=== PATIENT | male | born 1950 | race Caucasian/White ===

== ENCOUNTER 2019-07-09 16:31 | Outpatient (CLI) | payer MEDICARE, SELFPAY ==
--- NOTE | 2019-07-09 | MR_ITS ---
WS: [id number] MRI RIGHT SHOULDER HISTORY: ROTATOR CUFF SYNDROME COMPARISON: RIGHT shoulder radiograph 05/20/2019 TECHNIQUE: Multiplanar sequences of the shoulder joint are submitted. Severe AC joint arthritis. Narrowing of the AC joint with a large osteophyte extending inferiorly tow ards the rotator cuff. Osteophyte extends inferiorly by 8 mm. There is contact and encroachment upon the myotendinous insertion of the supraspinatus. Small amount of subacromial and subdeltoid fluid. Th ere is an additional smaller 3 mm osteophyte along the undersurface of the distal acromion without co ntact on the rotator cuff. No os acromion. There is increased signal throughout the distal 4 cm of the supraspinatus tendon. There is no fluid l mario signal throughout the width of the tendon. I suspect there may be a very minimal insertion site t ear. Subscapularis and infraspinatus tendons are intact. Biceps tendon in normal position. Increased fluid signal in the superior labrum consistent with a tear. Small osteophytes involving the humeral h ead. MR/MR shoulder RT wo con* [id number] IMPRESSION: 1. Severe AC joint osteoarthritis. 2. AC joint osteophyte encroaches upon the myotendinous insertion of the supra spinatus with deformity and impingement. 3. Small amount of subacromial/subdeltoid bursal fluid may be related to the A C joint arthritis and encroachment. 4. Suspect minimal insertion site tear of the supraspinatus. 5. Abnormal signal superior labrum consistent with a tear. 6. Moderate tendinopathy supraspinatus tendon.
== END 2019-07-09 16:32 | disposition home or self-care (01) ==
PROVIDERS: Family Provider Electrodiagnostic Medicine; PCP Electrodiagnostic Medicine; Visit Provider Electrodiagnostic Medicine
DX: M75.101 Unspecified rotator cuff tear or rupture of right shoulder, not specified as traumatic (principal); M19.011 Primary osteoarthritis, right shoulder; S43.431A Superior glenoid labrum lesion of right shoulder, initial encounter; X58.XXXA Exposure to other specified factors, initial encounter
CPT/HCPCS: 73221

== ENCOUNTER 2020-01-02 08:11 | Outpatient (CLI) | payer MEDICARE, SELFPAY ==
--- NOTE | 2020-01-02 08:18 | XR_ITS ---
WS: [id number] LEFT SHOULDER: 3 VIEW(S) TECHNIQUE: Internal and external rotation with Y view. HISTORY: ROTATOR CUFF SYNDROME, LEFT COMPARISON: 07/21/2018 No fracture or dislocation or soft tissue abnormality. Moderate narrowing of the AC joint. Hypertrophic bone formation with subchondral cystic changes on roni th sides of the AC joint. Small osteophyte extends inferiorly towards the rotator cuff distal clavicl e by 4 mm. Mild narrowing of the glenohumeral joint. XR/XR shoulder LT min 2V* [id number] IMPRESSION: 1. Moderate AC joint arthritis, similar to 05/20/2019. 2. No fracture.
== END 2020-01-02 08:12 | disposition home or self-care (01) ==
PROVIDERS: Family Provider Electrodiagnostic Medicine; PCP Electrodiagnostic Medicine; Visit Provider Electrodiagnostic Medicine
DX: M75.102 Unspecified rotator cuff tear or rupture of left shoulder, not specified as traumatic (principal); M13.812 Other specified arthritis, left shoulder
CPT/HCPCS: 73030

== ENCOUNTER 2020-01-12 14:47 | Outpatient (CLI) | payer MEDICARE, SELFPAY ==
--- NOTE | 2020-01-12 14:57 | MR_ITS ---
WS: [id number] MRI LEFT SHOULDER HISTORY: ROTATOR CUFF SYNDROME, LEFT COMPARISON: 01/02/2020 TECHNIQUE: Multiplanar sequences of the shoulder joint are submitted. Moderate arthropathy of the AC joint. There is soft tissue hypertrophy and osteophyte formation at th e AC joint. Thickening of the capsule surrounding the AC joint. Soft tissue and osteophyte formation extends toward the supraspinatus muscle with encroachment. Moderate amount of subcutaneous acromial a nd subdeltoid bursal fluid distention. No os acromion. Distal acromion encroaches upon the superior h umeral head. Biceps tendon is in normal position. Biceps tendon is very thin at the bicipital groove and there may be a partial split tear. There is a complete tear with retraction of the supraspinatus tendon. There is a fluid gap in the dis gonzalo rotator cuff. The supraspinatus tendon is retracted to the superior humeral head. There is thinni ng of the tendon. There is a partial insertion site tear of the infraspinatus tendon. Subscapularis t endon is intact. Moderate to severe atrophy of the supraspinatus muscle. No muscle edema. Mild fraying along the surfaces of the superior labrum. No definite tear. Mild narrowing of the gleno humeral joint with small osteophytes surrounding the humeral head. MR/MR shoulder LT wo con* [id number] IMPRESSION: 1. Complete tear supraspinatus tendon with retraction to the superior humeral head. Tendon is thinned over the superior humeral head. 2. Moderate atrophy of the supraspinatus muscle. 3. Small insertion site tear infraspinatus tendon. 4. Moderate osteoarthritis AC joint with osteophyte encroachment upon the supr aspinatus muscle. 5. Biceps tendon at the bicipital groove is very thin and suspicious for split tear.
== END 2020-01-12 14:48 | disposition home or self-care (01) ==
LOC: RADWPI 14:52
PROVIDERS: Family Provider Electrodiagnostic Medicine; PCP Electrodiagnostic Medicine; Visit Provider Electrodiagnostic Medicine
DX: M75.102 Unspecified rotator cuff tear or rupture of left shoulder, not specified as traumatic (principal); S46.912A Strain of unspecified muscle, fascia and tendon at shoulder and upper arm level, left arm, initial encounter; M19.012 Primary osteoarthritis, left shoulder; X58.XXXA Exposure to other specified factors, initial encounter
CPT/HCPCS: 73221

== ENCOUNTER → 2020-03-01 09:00 | Outpatient (BNVA) | payer MEDICARE, SELFPAY | PROVIDERS: Family Provider Electrodiagnostic Medicine; PCP Electrodiagnostic Medicine; Visit Provider Internal Medicine | DX: Z11.59 Encounter for screening for other viral diseases (principal) | CPT/HCPCS: 87635 ==

== ENCOUNTER 2020-03-04 07:49 | Outpatient (CLI) | payer MEDICARE, SELFPAY ==
--- NOTE | 2020-03-04 07:56 | ECG_ITS ---
[facility] Test Date: 2020-03-04 Pat Name: Marquis Love Department: Room: Gender: Male Picture Copyist: : 1950 Requested By: Gilberto Maurer Order Number: [id number] Ryan MD: Gilberto Maurer M.D. Interpretive Statements NAME OF STUDY: LEXISCAN SESTAMIBI STRESS TEST INDICATION: [Chest Pain] Procedure: At the baseline the blood pressure was 136/89 mmHg, oxygen saturation 96% with a heart rate of 54 bpm. The electrocardiogram showed sinus bradycardia, normal axis with normal ST and T's. The Lexiscan was infused over the period Of 20 seconds. A total of 0.4 mg of Lexiscan was infused. The stress phase was continued for a total of 5 minutes. Heart rate at the end of stress phase was 76 bpm, oxygen saturation 96% with a blood pressure of 143/78 mmHg. The EKG at the peak infusion revealed sinus rhythm with no significant ST-T wave changes. Sestamibi was injected 20 seconds after Lexiscan infusion. Blood pressure at the end of recovery phase was 141/80mmHg, oxygen saturation 95% with a heart rate of 72 bpm. Conclusion: 1. Normal EKG response to Lexiscan infusion. 2. No Lexiscan induced chest pain or cardiac arrhythmia. 3. Normal blood pressure and heart rate response. 4. Sestamibi/sestamibi perfusion scan pending; see separate report. Electronically Signed On 03-16-2020 14:36:59 CDT by Gilberto Maurer M.D. [email or web address].[id number]
--- NOTE | 2020-03-04 07:57 | NMCV_ITS ---
NM kai perf SPECT r/s* [id number] Marquis Love Age: 69 Gender: M : 1950 Exam Date: 03/04/2020 09:10 Ordering Phys: Gilberto Maurer M.D ([email or web address]) Technologist: NIRAV Strickland Exam Location: [facility] Indications: Chest pain STRESS TEST [facility] IMAGE PROTOCOL Rest/Stress 1 Lexiscan Day Radiopharmaceutical Dose (mCi) Administration Site Administered by Rest: Tc-99m 10.8 IV NIRAV Amaya Sestamibi Stress:Tc-99m 32.6 IV NIRAV Strickland Sestamikallie Rest: 04-Mar-2020 60 Discovery 630 Stress: 04-Mar-2020 45 Discovery 630 0.4mg Lexiscan. Images obtained in supine and prone position. SPECT RESULTS Technical Quality: Good Raw Data Analysis: Normal Image Corrections: No attenuation or motion correction applied Summed Stress Score: 33 Summed Rest Score: 29 Summed Difference Score: 4 PERFUSION FINDINGS Large in size and severe in intensity fixed perfusion defect is noted in the apical wall. Moderate sized, partially reversible perfusion defects are noted in the anterior and apical inferior liu. FUNCTIONAL RESULTS (calculated via Gated SPECT) Stress Image LV EF (%): 49 Stress EDV (mL):132 TID: 1.12 Stress ESV (mL):67 FUNCTIONAL FINDINGS: LV systolic funtion is mildly reduced with EF of 49% at stress and apical hypokinesis. IMPRESSIONS 1) Myocardial perfusion fixed defect in the apical wall likely indicating prior infarct. There is a partially reversible perfusion defect in the anterior and apical inferior wall. Clinical correlation is recommended 2) Mildly reduced LV systolic function with EF of 49% Gilberto Maurer MD (Electronically Signed) Final Date: 06 March 2020 18:02 S
[2020-03-04 08:07] VITALS: BMI 36.0
[2020-03-04] MEDS: regadenoson 0.4 Mg/5 ml Syringe IVP (10:25)
[2020-03-04 10:45] VITALS: BP 141/80; PULSE 71
== END 2020-03-04 07:50 | disposition home or self-care (01) ==
LOC: CDL 07:51
PROVIDERS: PCP Electrodiagnostic Medicine; Visit Provider Internal Medicine
DX: R07.9 Chest pain, unspecified (principal)
CPT/HCPCS: 78452; 93017; A9500; J2785

== ENCOUNTER 2020-03-12 11:24 | Outpatient (CLI) | payer MEDICARE, SELFPAY ==
[2020-03-12 11:58] LABS: Basophils # 0.1 10^3/uL (0.0-0.1); Basophils % 0.7 %; Eosinophils # 0.2 10^3/uL (0.0-0.8); Eosinophils % 2.9 %; Hemoglobin 15.8 g/dL (11.7-16.6); Lymphocytes # 1.8 10^3/uL (0.8-4.8); Lymphocytes % 26.4 %; Mean Corpuscular HGB Conc 32.2 g/dL (30.0-36.0); Mean Corpuscular Hemoglobin 29.5 pg (28.0-34.0); Mean Corpuscular Volume 91.6 fL (80-94); Monocytes # 0.7 10^3/uL (0.2-0.9); Monocytes % 9.7 %; Neutrophils # 4.19 10^3/uL (1.8-7.7); Nucleated Red Blood Cells % 0 %; Platelet Count 247 10^3/cmm (130-400); Red Blood Count 5.35 10^6/uL (4.1-5.3); Red Cell Distribution Width 13.4 % (12.1-15.1)
[2020-03-12 12:17] LABS: Anion Gap 15.2 (5-19); Blood Urea Nitrogen 25 mg/dL (8-23); Calcium 9.1 mg/dL (8.5-10.5); Carbon Dioxide 24 mmol/L (22-29); Chloride 101 mmol/L (98-107); Glomerular Filtration Rate 95.8 mL/min (90-130); Glucose 120 mg/dL (65-115); Osmolality Calculated 288 mOsm/kg (285-295); Potassium 4.2 mmol/L (3.5-5.1); Sodium 136 mmol/L (136-145)
== END 2020-03-12 11:25 | disposition home or self-care (01) ==
LOC: LAB 11:29
PROVIDERS: PCP Electrodiagnostic Medicine; Visit Provider Internal Medicine
DX: R07.9 Chest pain, unspecified (principal); Z20.828 Contact with and (suspected) exposure to other viral communicable diseases
CPT/HCPCS: 80048; 85025; 87635

== ENCOUNTER 2020-03-17 09:43 | Observation (INO) | payer MEDICARE, SELFPAY ==
[2020-03-16 10:19] VITALS: BMI 35.9
[2020-03-17] VITALS (34 sets, daily range): BP systolic 100–159; BP diastolic 68–97; PULSE 52–71; RESP 8–52; TEMP 36.6–36.8; O2SAT 94–98
--- NOTE | 2020-03-17 07:00 | XACV_ITS ---
Ht: 170 cm Wt: 103 kg BSA: 2.25 m2 Gender: Male : 1950 Any Known Allergies: No known allergies Exam Priority: Routine Procedure(s): Procedure Description: Diagnostic procedure Procedure Description: PCI procedure Procedure Description: Left Heart Catheterization Procedure Description: Drug Eluting Coronary Stent Procedure Description: PTCA Diagnostic Cath Status: Elective Diagnostic Findings * There is a mid LAD stent that is 100% occluded. This is chronic occlusion. A large septal artery with significant 70 to 80% proximal stenosis is noted arising just prior to occluded LAD stent. The septal artery provides left to left collaterals to apical LAD. mLAD: Severe 100% stenosis, TRINIDAD: 0 flow. A large diagonal artery is seen which has patent stents.. * Mid left circumflex artery at the origin of * obtuse marginal artery * has about 90% stenosis. mCIRC: Severe 90% stenosis, TRINIDAD: 0 flow. Large OM branch has a patent stent.. * LM has 0% stenosis. * Mid Right Coronary Artery: Severe 90% stenosis, TRINIDAD: 0 flow. * Coronary angiography shows right dominance. PCI Status: Elective PCI Indication: Other Interventional Findings * We engaged RCA using a JR4 guide catheter. A 0.014 run-through guidewire was used to cross the lesion. We predilated with a mid RCA stenosis using 2.5 x 12 mm semi-compliant balloon. This was followed by placement of a 3.0 x 15 mm resolute Rafael drug-eluting stent. At this time final angiogram was performed that showed TRINIDAD-3 flow, excellent stent expansion and no residual stenosis. Guidewire and guide catheter were removed. We then turned our attention to mid left circumflex artery stenosis. We used XB 3.5 guide catheter to engage the left main artery. A 0.014 run-through guidewire was used to cross the mid left circumflex stenosis. We placed a 2.75 x 15 mm drug-eluting stent and mid left circumflex artery. At this time final angiogram was performed that showed TRINIDAD-3 flow, no residual stenosis and excellent stent expansion. Guidewire and guide catheter were removed.. * mCIRC: 90% stenosis treated with MDT R RAFAEL 2.75X15 GIANLUCA. 0% residual stenosis, TRINIDAD: 3 flow. * Mid Right Coronary Artery: 90% stenosis treated with AB TREK 2.50X12 RX BALLOON and MDT R RAFAEL 3.0X15 GIANLUCA. 0% residual stenosis, TRINIDAD: 3 flow. Conclusions 1. Mid LAD stent is chronically occluded. This is unchanged from prior angiogram from 2 years ago. 2. There is severe coronary artery disease with three vessel disease. 3. mCIRC was treated with Drug Eluting Stent. 4. Mid Right Coronary Artery was treated with Balloon and Drug Eluting Stent. Recommendations * Admit to CSU. * Aspirin and Plavix for at least 1 year. * High intensity statin therapy. * Beta-marv and lisinopril. * Follow-up with cardiology clinic as outpatient. Interventional RX Recommendation: PCI w/o planned CABG Diagnostic RX Recommendation: PCI w/o planned CABG Anticoagulation: Heparin Pressures Phase:Rest AO : 100 / 62 ( 79 ) @ 2:55:00 AM Clinical Evaluation EBL: 5mL-10mL Procedural Details Procedure Consent Obtained. Pre-Procedure Time Out. Identified patient by full name and date of as verbalized by the patient/guarantor. Does the consent match the physician's order: Yes. Accurate & Complete Informed Consent: Yes. Inpatient/Outpatient History & Physical on Chart: Yes. If H&P is completed, is and addenduem needed: N/A; If yes, is the addendum complete: N/A. Visualize and Verify Site with Patient/Guarantor: N/A. Relevant Radiology Images available: N/A. Pre-op teaching completed and patient verbalized understanding. The risks, benefits, and alternatives of sedation and/or procedure were discussed by physician. The patient agrees to continue. Procedure started. Correct patient, site and procedure confirmed by cath team. PERRLA. Strong, equal hand facility sales and admin bilaterally. Lungs clear x 5 lobes. IV Site on Arrival: 20 gauge in the right anticubital. Pre Procedural Pulses: bilateral dorsalis pedis was 2+. Pre Procedural Pulses: bilateral posterior tibial was 1+. Pre Procedural Pulses: bilateral radial was 2+. Oxygen started at 2liters/min via nasal canula. bilateral groins was prepped with chloroprep then draped in the usual sterile fashion. right radial was prepped with chloroprep then draped in the usual sterile fashion. Physician notified. Baseline sample Acquired. HR: 54 BPM. Physician arrived. Physician scrubbed in. Immediate Pre-Procedure Time Out. Correct Patient: Yes; Correct Procedure: Yes; Correct Site: Yes; Correct Patient Position: Yes; Correct Supplies: Yes; Dried Flammable Prep: Yes; Blood Products Available: N/A;. Lidocaine 1% infiltrated to the right radial. Arterial access obtained. A 5 cymraes TIG catheter in over wire. Multiple views taken of left coronary artery. Catheter redirected to the RCA. Multiple views taken of right coronary artery. Catheter out. 6 cymraes JR 4 guide catheter was inserted over the wire. Runthrough guidewire was advanced through the guide catheter to lesion in the mid RCA. Inflation number : 1 A AB TREK 2.50X12 RX BALLOON was prepped and advanced across the Mid RCA , then inflated to 10 BRITTANY for 0:19 seconds. Balloon out. Inflation Number : 2 A DONY Murray RAFAEL 3.0X15 GIANLUCA -Lot Number# [id number] exp: 12-16-2021 was prepped and advanced across the Mid RCA. The stent was deployed at 14 BRITTANY for 0:21 seconds. checking results. guide catheter out. wire out. 6 cymraes XB 3.5 guide catheter was inserted over the wire. ACT drawn. Results 220 seconds. Therapeutic limits - pre-heparin administration 90-150 seconds and monitoring heparin during a vascular procedure >250 seconds. Guide catheter out. 6 cymraes XB 3 guide catheter was inserted over the wire. Runthrough guidewire was advanced through the guide catheter to lesion in the mid Circ. Inflation Number : 1 A DONY Murray RAFAEL 2.75X15 GIANLUCA -Lot Number# [id number] exp:12-15-2021 was prepped and advanced across the Mid CX. The stent was deployed at 14 BRITTANY for 0:19 seconds. Stent balloon out over wire. checking results. Wire out. Guide catheter out. TR band placed. Hemostasis obtained. Post Procedure: Pulses reassessed and unchanged. PERRLA. Strong, equal hand facility sales and admin bilaterally. No VTE prophylaxis required. Medication's Wasted: Lidocaine 1% = 18 mL. Medication's Wasted: Nitro = 49.8 mg. Medication's Wasted: Heparin = 1000 units. Total IV fluids: 100 mL. Contrast type used: Omnipaque 300 mgI/mL, 500 mL bottle. Contrast Material : Omnipaque 368 ml. Complications: none. Estimated blood loss: 5mL-10mL. A TR Band was successful obtaining hemostatsis at the Right Radial artery insertion site. [facility] Clinical Fraility Score: 3: Managing Well. Painter Interior Finish Indications: Worsening Angina and positive stress test. Chest Pain Symptom Assessment: Typical Angina Symptoms. Cardiovascular Instability: No,. PCI Indication: severe 2 vessel CAD (without ischemic symptoms). Post-op diagnosis: severe 2 Vessel CAD. Procedure completed. Patient transferred by wheelchair to 1st floor. Vital chart was stopped. Access Site Site: Right Radial artery Sheath Size: 6 Fr Hemostasis Method: TR Band Hemostasis Success: Successful Procedure Medications Start: 7:29 AM Stop: 7:29 AM Medication: Benadryl Amount: 25 mg Route: I.V. Start: 7:33 AM Stop: 7:33 AM Medication: Versed Amount: 1 mg Route: I.V. Start: 7:33 AM Stop: 7:33 AM Medication: Fentanyl Amount: 50 mcg Route: I.V. Start: 7:46 AM Stop: 7:46 AM Medication: Nitrogylcerin Amount: 200 mcg Route: I.A. Start: 7:46 AM Stop: 7:46 AM Medication: Heparin Amount: 5000 units Route: I.V. Start: 8:01 AM Stop: 8:01 AM Medication: Versed Amount: 1 mg Route: I.V. Start: 8:01 AM Stop: 8:01 AM Medication: Fentanyl Amount: 50 mcg Route: I.V. Start: 8:02 AM Stop: 8:02 AM Medication: Heparin Amount: 5000 units Route: I.V. Start: 8:21 AM Stop: 8:21 AM Medication: Heparin Amount: 3000 units Route: I.V. Start: 8:38 AM Stop: 8:38 AM Medication: Heparin Amount: 2000 units Route: I.V. I, the attending physician, have reviewed and verified all procedure medications. Yes, all medications given per verbal order History/Risk Factors Hypertension: Yes Dyslipidemia: Yes Peripheral Arterial Disease (PAD): No Myocardial Infarction (AR): No Obesity: Yes Renal Disease: No Tobacco Use: Never Prior Interventions PCI: Yes CABG: No Valve Surgery: No Date of PCI: 01/30/2018 Report Signatures Finalized by Gilberto Maurer MD on 03/21/2020 06:28 PM
--- NOTE | 2020-03-17 07:33 | W.PM.OPSUD ---
Surgery/Procedure H&P Update DATE OF PROCEDURE: March 17, 2020 DATE H&P PERFORMED: 02/18/20 H&P UPDATE INFORMATION: I have reviewed H&P completed within last 30 days, I have examined patient prior to procedure and No changes to prior documentation PREOP DIAGNOSIS: Abnormal stress test/worsening angina PRIMARY INDICATION FOR PROCEDURE: Abnormal stress test/worsening angina PLANNED PROCEDURE: Operation Date: 03/17/20 07:00 Proposed Procedures p Left Cardiac Catheterization(Left) - Gilberto Maurer M.D Possible PCI PATIENT REASSESSED PRIOR TO SEDATION, WITH NO CHANGE NOTED: Yes PHYSICAL EXAM: alert, oriented x 3 and clear to auscultation bilaterally AIRWAY EVAL/ANESTHESIA PLAN: normal airway, ASA III, Risks, benefits & alternatives of sedation and/or procedure discussed and Patient agrees to continue as planned
[2020-03-17] MEDS: clopidogrel 300 mg Tablet PO (09:56)
[2020-03-17] MEDS: sodium chloride 0.9% 1,000 ML 50 ML IV (10:23)
--- NOTE | 2020-03-17 10:35 | PC.NURSE ---
Patient's 0900 meds ordered not given as patient stated he took all his morning meds at home this morning (except metformin)
[2020-03-17 11:26] LABS: Glucose Point of Care 156 mg/dL (70-110)
--- NOTE | 2020-03-17 12:00 | PC.NURSE ---
At 1115 removed 3 ml of air from TR band. No bleeding noted. At 1145 removed additional 4 ml of air. Oozing noted at noon. Returned 4 ml of air to TR bad and cleaned around band.
[2020-03-17 16:52] LABS: Glucose Point of Care 116 mg/dL (70-110)
--- NOTE | 2020-03-17 19:37 | PC.NURSE ---
Rounding:Patient is resting in bed watching TV. Patient denies any pain or needs at this time. Patient remains alert and oriented at this time.
[2020-03-17] MEDS: atorvastatin 40 mg Tablet PO (20:34)
--- NOTE | 2020-03-18 00:04 | PC.NURSE ---
Called Dr. Serna due to patient request for a sleeping pill. Orders received for a Restoril 15mg PRN as needed for sleep. Read back verbal order.
[2020-03-18] MEDS: temazepam 15 mg Capsule PO (00:17)
[2020-03-18 04:04] VITALS: BP 143/89; PULSE 71; RESP 14; TEMP 36.7; O2SAT 95
--- NOTE | 2020-03-18 06:05 | PC.NURSE ---
End of shift: Patient has had a uneventful shift. Patient remains alert and oriented. Patient has rested off and on this shift. Patient has had no complaints of pain.
--- NOTE | 2020-03-18 07:43 | P.SS_ITS ---
Short Stay Summary Providers Date of Admit/Discharge: 03/18/20 Attending Provider: Gilberto Maurer M.D Primary Care Provider: Vijay Nunes DO Chief Complaint: left heart cath HPI History of Present Illness Marquis Love is a 70 year old male with past medical history of coronary artery disease, ST elevation CT status post proximal LAD PCI and PCI of second diagonal and first obtuse marginal branch was having chest pains. He underwent nuclear stress test that was abnormal. He came to hospital for outpatient coronary angiography with possible percutaneous coronary intervention. Review of Systems Narrative: CONSTITUTIONAL: No fever chills weight loss or gain or night sweats. [] HEENT: Normocephalic, atraumatic.[] RESPIRATORY: No cough, sputum, hemoptysis or wheezing.[] CARDIOVASCULAR: No shortness of breath, chest pain, PND, orthopnea, lower extremity edema, presyncope or syncope. [] GI: no nausea vomiting diarrhea. [] MEMORIAL ADVISER: No numbness, tingling, weakness or loss of function in any part of the body. [] MUSCULOSKELETAL: No knee or joint pain or rashes. [] Home Meds/Allergies Home Medications and Allergies Home Medications Medication Instructions Recorded Confirmed Type canagliflozin 100 mg tablet 50 mg PO QAM tab 06/18/19 03/17/20 History escitalopram oxalate 20 mg tablet 10 mg PO DAILY tab 06/18/19 03/17/20 History fenofibrate nanocrystallized 145 145 mg PO DAILY tab 06/18/19 03/17/20 History mg tablet lisinopril 20 1 tab PO DAILY tab 06/18/19 03/17/20 History mg-hydrochlorothiazide 12.5 mg tablet metformin 500 mg tablet 500 mg PO BID 06/18/19 03/17/20 History metoprolol tartrate 50 mg tablet 25 mg PO BID tab 06/18/19 03/17/20 History nitroglycerin 0.4 mg sublingual 0.4 mg SUBLINGUAL Q5M PRN 06/18/19 03/16/20 History tablet Allergies Allergy/AdvReac Type Severity Reaction Status Date / Time No Known Allergies Allergy Verified 02/18/20 14:54 PFSH Acute PFSH: Medical History Diabetes Family History Father CAD (coronary artery disease) Myocardial infarction Brain aneurysm Mother CAD (coronary artery disease) Social History Smoking and tobacco status: never smoked Alcohol intake: never Vitals/I&O/Wt Last Vital Signs Temp 98.1 F 03/18/20 04:04 Pulse 71 03/18/20 04:04 Resp 14 03/18/20 04:04 BP 143/89 03/18/20 04:04 Pulse Ox 95 03/18/20 04:04 03/17/20 03/18/20 03/18/20 22:59 06:59 14:59 Intake Total 360 / 840 250 / 1090 Output Total 1150 / 1700 1200 / 2900 500 / 500 Balance -790 / -860 -950 / -1810 -500 / -500 Weight last 48 hrs Weight 229 lb Physical Exam Narrative: EXAM NARRATIVE: GENERAL: Patient is alert, awake and oriented x3. [] NECK: No jugular vein distension. [] HEENT: No cyanosis. No icterus. No pallor. [] HEART: Regular S1 and S2. No murmur, rub or gallop. [] LUNGS: Clear to auscultate bilaterally. [] ABDOMEN: Soft, nontender and nondistended. Positive bowel sounds. No guarding, rebound or tenderness. [] CENTRAL NERVOUS SYSTEM: Grossly nonfocal. [] EXTREMITIES: Lower extremities with no edema bilaterally. Pulses palpable in the lower extremities, both dorsalis pedis and posterior tibial. [] Hospital Course Admission Diagnoses: Worsening angina/abnormal stress test Hospital Course: Marquis Love is a 70 year old male with past medical history of coronary artery disease, ST elevation CT status post proximal LAD PCI and PCI of second diagonal and first obtuse marginal branch was having chest pains. He underwent nuclear stress test that was abnormal. He underwent coronary angiography yesterday that showed severe mid RCA and mid left circumflex stenosis. He underwent PCI with drug-eluting stent x2. Patient stayed in the hospital for 1 night. He was stable. He was discharged home on aspirin, Plavix, lisinopril and beta-marv. His simvastatin was switched to atorvastatin 80 mg daily. SSS Data Data Completed and Pending: Pending at discharge Category Date Time Status HEAVY EQUIPMENT SERVICE MANAGER request for service Routin e Exams 03/17/20 07:00 Taken Discharge Plan Discharge Patient Disposition: Home Condition: Stable Prescriptions: New Adult Aspirin Regimen 81 mg tablet,delayed release (DR/EC) 81 mg PO DAILY Qty: 90 RF: 3 atorvastatin 80 mg tablet 80 mg PO DAILY Qty: 90 RF: 3 Continued escitalopram oxalate 20 mg tablet 10 mg PO DAILY RF: 0 Invokana 100 mg tablet 50 mg PO QAM RF: 0 fenofibrate nanocrystallized 145 mg tablet 145 mg PO DAILY RF: 0 metoprolol tartrate 50 mg tablet 25 mg PO BID RF: 0 lisinopril-hydrochlorothiazide 20-12.5 mg tablet 1 tab PO DAILY RF: 0 nitroglycerin [Nitrostat] 0.4 mg tablet, sublingual 0.4 mg SUBLINGUAL Q5M PRN (Reason: Chest Pain) RF: 0 clopidogrel 75 mg tablet 75 mg PO DAILY Qty: 90 RF: 0 Discontinued aspirin 325 mg tablet 325 mg PO DAILY RF: 0 simvastatin 80 mg tablet 80 mg PO .HS RF: 0 No Action metformin 500 mg tablet 500 mg PO BID RF: 0 Discharge Orders: Discharge Order (Routine); Ordered 03/18/20 Ordered By: Gilberto Maurer Referrals: Gilberto Maurer M.D [Physician] - 1 month (You have a cardiology followup with Dr. Maurer at [facility] on May 05 at 1:00pm) Santa Pugh FNP [Nurse Practitioner] - 1 week (You have a post procedure followup with ANASTACIA Vann at [facility] on March 25 at 10:45am) Discharge Diet: Cardiac Discharge Activity: Increase activity as tolerated Patient Instructions: Aspirin (By mouth), Atorvastatin (By mouth), Clopidogrel (By mouth), Hypertension, Coronary Artery Disease (DC), Chest Pain (DC), Left Heart Catheterization (DC), Coronary Angioplasty (DC), Chest Pain Stoplight, Post Angiogram Home Care Instructions Activity Restrictions/Additional Instructions: Please do not lift any weight more than 5 pounds for the next 5 days Discharge Date/Time: 03/18/20 10:15 Attestations Medical Necessity Statement*: Care not expected to cross 2 midnights. Time Spent in Patient Care*: greater than 30 min Quality Metrics Clinical Quality Measures: During this hospital stay, did patient experience: None Coding Level of Care Code Acute Tire Spotter for [place]
[2020-03-18] MEDS: hydroCHLOROthiazide 25 mg Tablet 12.5 MG PO (08:04)
[2020-03-18] MEDS: lisinopril 20 mg Tablet PO (08:04)
[2020-03-18] MEDS: fenofibrate 145 mg Tablet PO (08:04)
[2020-03-18] MEDS: clopidogrel 75 mg Tablet PO (08:05)
[2020-03-18] MEDS: escitalopram 10 mg Tablet PO (08:05)
[2020-03-18] MEDS: metoprolol tartrate 25 mg Tablet PO (08:05)
[2020-03-18 08:53] VITALS: BP 132/87; PULSE 66; RESP 15; TEMP 36.7; O2SAT 94
[2020-03-18 10:14] VITALS: BP 132/87; PULSE 66; RESP 15; TEMP 36.7; O2SAT 94
== END 2020-03-18 10:15 | disposition home or self-care (01) ==
LOC: CSU 09:44
PROVIDERS: Admitting Provider Internal Medicine; PCP Electrodiagnostic Medicine; Visit Provider Internal Medicine
DX: I65.23 Occlusion and stenosis of bilateral carotid arteries (principal); I25.10 Atherosclerotic heart disease of native coronary artery without angina pectoris; I25.2 Old myocardial infarction; E11.9 Type 2 diabetes mellitus without complications; Z79.84 Long term (current) use of oral hypoglycemic drugs; Z82.49 Family history of ischemic heart disease and other diseases of the circulatory system
CPT/HCPCS: 12345; 36415; 36416; 82962; 85347; 85610; 93454; C1725; C1769; C1874; C1887; C1894; C9600; C9601; G0378; J1200; J1644; J2250; J3010; J3490; J7030; Q9967

== ENCOUNTER → 2020-03-25 11:41 | Outpatient (BNVA) | payer MEDICARE, SELFPAY | PROVIDERS: PCP Electrodiagnostic Medicine; Visit Provider Nurse Practitioner Family | DX: I25.119 Atherosclerotic heart disease of native coronary artery with unspecified angina pectoris (principal) | CPT/HCPCS: 80048 ==

== ENCOUNTER 2020-05-31 10:13 | Outpatient (CLI) | payer MEDICARE, SELFPAY ==
--- NOTE | 2020-05-31 10:27 | FL_ITS ---
WS: [id number] MODIFIED BARIUM SWALLOW TECHNIQUE: Modified barium swallow with speech therapy using multiple consistencies. FLUOROSCOPY TIME: 3.3 minutes. CLINICAL INFORMATION: Other dysphagia COMPARISON: None. FINDINGS: Modified barium swallow using multiple consistencies. Penetration is significantly progressed. No fra nk aspiration. Mild esophageal dysmotility in the mid and distal esophagus. Slightly delayed transit of the barium tablet in the mid to distal esophagus which shortly traversing the GE junction with add itional liquid. FL/FL barium swallow modifd [id number] IMPRESSION: 1. Penetration visualized with thin liquids. No malia aspiration. 2. Mild esophageal dysmotility in the mid to distal esophagus. This can be fur ther evaluated with esophagram.
== END 2020-05-31 10:14 | disposition home or self-care (01) ==
PROVIDERS: PCP Electrodiagnostic Medicine; Visit Provider Electrodiagnostic Medicine
DX: R13.10 Dysphagia, unspecified (principal); I10 Essential (primary) hypertension; E78.5 Hyperlipidemia, unspecified; R07.9 Chest pain, unspecified; I25.10 Atherosclerotic heart disease of native coronary artery without angina pectoris
CPT/HCPCS: 74230; 92611

== ENCOUNTER 2021-01-24 08:41 | Outpatient (CLI) | payer MEDICARE, SELFPAY ==
[2021-01-24 09:08] VITALS: BMI 34.4
--- NOTE | 2021-01-24 09:10 | NMCV_ITS ---
NM kai perf SPECT r/s* [id number] Marquis Love Age: 70 Gender: M : 1950 Exam Date: 01/24/2021 09:42 Ordering Phys: Gilberto Maurer M.D ([email or web address]) Technologist: NIRAV Petersen Exam Location: [facility] Indications: CHEST PAIN STRESS TEST Please [facility] IMAGE PROTOCOL Rest/Stress 1 Lexiscan Day Radiopharmaceutical Dose (mCi) Administration Site Administered by Rest: Tc-99m 10.8 IV NIRAV Petersen Sestamibi Stress:Tc-99m 33.0 IV NIRAV Strickland Sestamibi Rest: 24-Jan-2021 60 Discovery 630 Stress: 24-Jan-2021 30 Discovery 630 0.4mg Lexiscan. Images obtained in supine and prone position. SPECT RESULTS Technical Quality: Excellent Raw Data Analysis: Normal Image Corrections: No attenuation or motion correction applied Summed Stress Score: 27 Summed Rest Score: 28 Summed Difference Score: 1 PERFUSION FINDINGS There is a large sized fixed perfusion defect in the apical, apical anterior, apical septal and apical inferior liu. This represents large sized prior infarct in these areas. FUNCTIONAL RESULTS (calculated via Gated SPECT) Stress Image LV EF (%): 43 Stress EDV (mL):137 TID: 1.1 Stress ESV (mL):78 FUNCTIONAL FINDINGS: LV systolic function is moderately reduced with severe hypokinesis of apical, apical anterior and apical inferior liu. IMPRESSIONS 1. Abnormal myocardial perfusion imaging with prior infarct noted in apical, apical anterior, apical inferior and apical septal liu. No evidence of ischemia is noted. 2. LV systolic function is moderately reduced with EF of 43% and above- mentioned wall motion abnormalities. Gilberto Maurer MD (Electronically Signed) Final Date: 30 January 2021 19:55 S
--- NOTE | 2021-01-24 09:10 | ECG_ITS ---
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 Interpretive Statements NAME OF STUDY: LEXISCAN SESTAMIBI STRESS TEST INDICATION: [Chest Pain, ] Procedure: At the baseline, the blood pressure was 132/77 mmHg with a heart rate of 59 bpm. The electrocardiogram showed sinus bradycardia, normal axis with normal ST and T's. The Lexiscan was infused over a period of 20 seconds. A total of 0.4 mg of Lexiscan was infused. The stress phase was continued for a total of 5 minutes. Heart rate was at the end of stress phase was 76 bpm and a blood pressure of 122/71 mmHg. The EKG at the peak infusion revealed since normal sinus rhythm with no significant ST-T wave changes. Sestamibi was injected 20 seconds after the Lexiscan infusion. Blood pressure at the end of recovery phase was 123/72 mmHg with a heart rate of 73 bpm. Conclusion: 1. Normal EKG response to Lexiscan infusion 2. No Lexiscan induced chest pain or cardiac arrhythmia. 3. Normal blood pressure and heart rate response. 4. Sestamibi/sestamibi perfusion scan pending; see separate report. Electronically Signed On 02-13-2021 12:24:39 CDT by Gilberto Maurer M.D. [id number]
[2021-01-24 10:50] VITALS: BP 121/69; PULSE 76
[2021-01-24] MEDS: regadenoson 0.4 Mg/5 ml Syringe IVP (11:00)
== END 2021-01-24 08:42 | disposition home or self-care (01) ==
LOC: CDL 08:46
PROVIDERS: PCP Electrodiagnostic Medicine; Visit Provider Internal Medicine
DX: R07.9 Chest pain, unspecified (principal); R06.02 Shortness of breath
CPT/HCPCS: 78452; 93017; A9500; J2785

== ENCOUNTER → 2021-09-02 08:54 | Outpatient (BNVA) | payer MEDICARE, SELFPAY | PROVIDERS: PCP Electrodiagnostic Medicine; Visit Provider Internal Medicine | DX: Z09 Encounter for follow-up examination after completed treatment for conditions other than malignant neoplasm (principal); E11.9 Type 2 diabetes mellitus without complications; I25.119 Atherosclerotic heart disease of native coronary artery with unspecified angina pectoris; I10 Essential (primary) hypertension; Z79.82 Long term (current) use of aspirin; Z79.84 Long term (current) use of oral hypoglycemic drugs | CPT/HCPCS: 99213 ==

== ENCOUNTER → 2022-08-25 10:51 | Outpatient (BNVA) | payer MEDICARE, SELFPAY | PROVIDERS: PCP Electrodiagnostic Medicine; Visit Provider Internal Medicine | DX: I25.119 Atherosclerotic heart disease of native coronary artery with unspecified angina pectoris (principal); E11.9 Type 2 diabetes mellitus without complications; I10 Essential (primary) hypertension; I25.2 Old myocardial infarction; Z79.82 Long term (current) use of aspirin; Z79.84 Long term (current) use of oral hypoglycemic drugs | CPT/HCPCS: 99214 ==

== ENCOUNTER 2022-11-22 07:09 | Outpatient (CLI) | payer MEDICARE, SELFPAY ==
[2022-11-22 07:27] VITALS: BMI 35.5
--- NOTE | 2022-11-22 07:45 | ECG_ITS ---
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 Interpretive Statements NAME OF STUDY: LEXISCAN SESTAMIBI STRESS TEST INDICATION: [Chest Pain] Procedure: At the baseline, the blood pressure was 125/82 mmHg with a heart rate of 60 bpm. The electrocardiogram showed normal sinus rhythm, normal axis with normal ST and T's. The Lexiscan was infused over a period of 20 seconds. A total of 0.4 mg of Lexiscan was infused. The stress phase was continued for a total of 5 minutes. Heart rate was at the end of stress phase was 82 bpm and a blood pressure of 144/85 mmHg. The EKG at the peak infusion revealed normal sinus rhythm with no significant ST-T wave changes. Sestamibi was injected 20 seconds after the Lexiscan infusion. Blood pressure at the end of recovery phase was 123/77 mmHg with a heart rate of 82 bpm. Conclusion: 1. Normal EKG response to Lexiscan infusion 2. No Lexiscan induced chest pain or cardiac arrhythmia. 3. Normal blood pressure and heart rate response. 4. Sestamibi/sestamibi perfusion scan pending; see separate report. Electronically Signed On 11-24-2022 16:12:31 CDT by Gilberto Maurer M.D. [id number]
--- NOTE | 2022-11-22 07:49 | NMCV_ITS ---
NM kai perf SPECT r/s* [id number] Marquis Love Age: 72 Gender: M : 1950 Exam Date: 11/22/2022 08:20 Ordering Phys: Gilberto Maurer M.D ([email or web address]) Technologist: NIRAV Petersen Exam Location: [facility] Indications: CHEST PAIN STRESS TEST Please [facility] IMAGE PROTOCOL Rest/Stress 1 Lexiscan Day Radiopharmaceutical Dose (mCi) Administration Site Administered by Rest: Tc-99m 10.5 IV NIRAV Strickland Sestamibi Stress:Tc-99m 32.9 IV NIRAV Strickland Sestamibi Rest: 22-Nov-2022 60 Discovery 630 Stress: 22-Nov-2022 30 Discovery 630 0.4mg Lexiscan. Images obtained in supine and prone position. SPECT RESULTS Technical Quality: Excellent Raw Data Analysis: Normal Image Corrections: No attenuation or motion correction applied Summed Stress Score: 30 Summed Rest Score: 26 Summed Difference Score: 4 PERFUSION FINDINGS There is a large in size, partially reversible perfusion defect noted in the anteroseptal and anterior liu. This is consistent with large sized prior infarct with chris-infarct ischemia in the LAD territory. There is a fixed perfusion defect noted in apical inferior wall. This is consistent with large sized prior infarct in the RCA territory. FUNCTIONAL RESULTS (calculated via Gated SPECT) Stress Image LV EF (%): 50 Stress EDV (mL):115 TID: 1.03 Stress ESV (mL):58 FUNCTIONAL FINDINGS: LV systolic function is mildly reduced. IMPRESSIONS 1. There is a large sized prior infarct with significant hcris-infarct ischemia seen in the LAD territory. 2. Large sized prior infarct noted in the RCA territory. 3. LV systolic function mildly reduced Gilberto Maurer MD (Electronically Signed) Final Date: 26 November 2022 18:38 S
[2022-11-22] MEDS: regadenoson 0.4 Mg/5 ml Syringe IVP (09:21)
[2022-11-22 09:46] VITALS: BP 135/84; PULSE 68
== END 2022-11-22 07:10 | disposition home or self-care (01) ==
PROVIDERS: PCP Electrodiagnostic Medicine; Visit Provider Internal Medicine
DX: R07.9 Chest pain, unspecified (principal); I25.2 Old myocardial infarction
CPT/HCPCS: 36415; 78452; 93017; 96374; A9500; J2785

== ENCOUNTER 2022-12-25 05:46 | Outpatient (CLI) | payer MEDICARE, SELFPAY ==
[2022-12-25 06:00] VITALS: BP 124/77; PULSE 59; RESP 18; TEMP 35.9; O2SAT 96; BMI 35.5
[2022-12-25 06:29] LABS: Basophils # 0.1 10^3/uL (0.0-0.1); Basophils % 0.9 %; Eosinophils # 0.2 10^3/uL (0.0-0.8); Eosinophils % 2.8 %; Hematocrit 51.8 % (42.0-52.0); Hemoglobin 16.9 g/dL (11.7-16.6); Lymphocytes # 1.9 10^3/uL (0.8-4.8); Lymphocytes % 25.6 %; Mean Corpuscular HGB Conc 32.6 g/dL (30.0-36.0); Mean Corpuscular Hemoglobin 29.3 pg (28.0-34.0); Mean Corpuscular Volume 89.8 fl (80-94); Mean Platelet Volume 10.1 fL (7.4-10.4); Monocytes # 0.6 10^3/uL (0.2-0.9); Monocytes % 8.2 %; Neutrophils # 4.61 10^3/uL (1.8-7.7); Nucleated Red Blood Cells % 0 %; Platelet Count 241 10^3/cmm (130-400); Red Blood Count 5.77 10^6/uL (4.1-5.3); Red Cell Distribution Width 14.1 % (12.1-15.1); White Blood Count 7.5 10^3/uL (4.0-10.0)
[2022-12-25] MEDS: diphenhydrAMINE 50 mg Capsule PO (06:30)
[2022-12-25 06:35] LABS: Glucose Point of Care 148 mg/dL (70-110)
[2022-12-25 06:45] LABS: Anion Gap 12.7 (5-19); Blood Urea Nitrogen 16 mg/dL (8-23); Calcium 9.4 mg/dL (8.5-10.5); Carbon Dioxide 27 mmol/L (22-29); Chloride 101 mmol/L (98-107); Glucose 154 mg/dL (65-115); Osmolality Calculated 288 mOsm/kg (285-295); Potassium 3.7 mmol/L (3.5-5.1); Sodium 137 mmol/L (136-145)
--- NOTE | 2022-12-25 07:00 | XACV_ITS ---
Exam Room: 2 Ht: 168 cm Wt: 100 kg BSA: 2.20 m2 Gender: Male : 1950 Any Known Allergies: No known allergies Exam Priority: Routine Procedure(s): Procedure Description: Diagnostic procedure Procedure Description: Left Heart Catheterization Procedure Description: Left ventriculography Procedure Description: Coronary Angiography Diagnostic Cath Status: Elective Diagnostic Findings * INDICATION: 72-year-old man with past medical history of CAD has been having chest pain episodes. Initially plan was for medical management however pain episodes were worsening. He underwent stress test that was abnormal . Plan for coronary angiogram with possible percutaneous coronary intervention. * Left Main has mild luminal irregularities. * Circumflex has mild luminal irregularities. * Right Coronary Artery has patent prior stent. Mild to moderate proximal 30% stenosis. * Mid Left Anterior Descending: chronic total occlusion of prior stent, TR[place]: 0 flow. Has a patent diagonal artery. * Coronary angiography shows right dominance. Conclusions 1. There is chronic total occlusion of mid LAD stent. Otherwise mild to moderate luminal irregularities in other vessels. Medical therapy decided.. 2. Mild left ventricular systolic dysfunction. Ejection fraction of 45%. Recommendations * Aggressive risk factor modification. * Outpatient cardiology follow up in 2-4 weeks. Interventional RX Recommendation: medical therapy and/or counseling Diagnostic RX Recommendation: medical therapy and/or counseling Anticoagulation: Heparin Ventriculography Ejection Fraction: 45.0 % Pressures Phase:Rest AO : 94 / 70 ( 82 ) @ 9:01:00 AM 120 / 25 ( 49 ) @ 9:12:00 AM 125 / 70 ( 93 ) @ 9:13:00 AM 127 / 70 ( 94 ) @ 9:13:00 AM LV : 126 / 5 / 19 @ 9:12:00 AM 123 / 9 / 23 @ 9:13:00 AM 121 @ 9:13:00 AM Valves Phase:DefaultPhase AV : 0.0 @ 8:19:38 AM AV Mean Gradient: 0.0 @ 8:19:38 AM 0.0 @ 8:19:38 AM Clinical Evaluation EBL: 5mL-10mL Procedural Details Procedure Consent Obtained. Pre-Procedure Time Out. Identified patient by full name and date of as verbalized by the patient/guarantor. Does the consent match the physician's order: Yes. Accurate & Complete Informed Consent: Yes. Inpatient/Outpatient History & Physical on Chart: Yes. If H&P is completed, is and addenduem needed: No. Visualize and Verify Site with Patient/Guarantor: N/A. Relevant Radiology Images available: Yes. The risks, benefits, and alternatives of sedation and/or procedure were discussed by physician. The patient agrees to continue. Procedure started. [facility] Clinical Fraility Score: 3: Managing Well. Groundskeeping Maintenance Indications: Stable Known CAD/CP/Abnormal stress test. Chest Pain Symptom Assessment: Typical Angina Symptoms. Cardiovascular Instability: No. Correct patient, site and procedure confirmed by cath team. PERRLA. Strong, equal hand guard captain bilaterally. Lungs clear x 5 lobes. IV Site on Arrival: 20 gauge in the right anticubital. IV Fluids: 0.9% NaCl at KVO. 0 mL infused prior to labor contract analyst. Pre Procedural Pulses: bilateral dorsalis pedis was 2+. Pre Procedural Pulses: bilateral posterior tibial was 2+. Pre Procedural Pulses: bilateral radial was 3+. Oxygen started at 2liters/min via nasal canula. right groin was prepped with chloroprep then draped in the usual sterile fashion. right radial was prepped with chloroprep then draped in the usual sterile fashion. Physician notified. Baseline sample Acquired. HR: 53 BPM. Patient's spouse in the labor contract analyst waiting room. Dr. Maurer will update at the completion of the procedure. Equipment: 6F - Radial. Cardiac Cath Pack. ACIST Manifold Kit Model BT 2000. Heparinized Saline (2 units/mL), 1000 mL bag. Physician arrived. Physician scrubbed in. Immediate Pre-Procedure Time Out. Correct Patient: Yes; Correct Procedure: Yes; Correct Site: Yes; Correct Patient Position: Yes; Correct Supplies: Yes; Dried Flammable Prep: Yes; Blood Products Available: N/A;. Lidocaine 1% infiltrated to the right radial. Arterial access obtained. A 5 lebanese TIG catheter in over the exchange J wire. Multiple views taken of left coronary artery. Catheter redirected to the RCA. Cine of the RCA performed. Catheter removed over the exchange J wire. A 5 lebanese JR4 catheter in over the exchange J wire. Multiple views taken of right coronary artery. Catheter removed over the exchange J wire. A 5 lebanese Angled Pig catheter in over the exchange J wire. EDP Sample taken: LV 126/5,19; HR: 55 BPM; SpO2: 97%. Pullback taken: LV Off; AO Off; Mean: , Peak to Peak: , SEP: ; HR: 56 BPM; SpO2: 97%. LV gram performed in DIEGO @ 10 mL/second for a total of 30 mL. EDP Sample taken: LV 123/9,23; HR: 57 BPM; SpO2: 97%. Pullback taken: LV 121/10,25; AO 125/70(93); Mean: 0mmHg, Peak to Peak: 0mmHg, SEP: 6sec/min; HR: 56 BPM; SpO2: 97%. Catheter removed over the exchange J wire. Physician scrubbed out. A TR Band was successful obtaining hemostatsis at the Right Radial artery insertion site. TR band placed. Hemostasis obtained. Post Procedure: Pulses reassessed and unchanged. PERRLA. Strong, equal hand guard captain bilaterally. No VTE prophylaxis required. Medication's Wasted: Nitro = 49.8 mg. Medication's Wasted: Heparin = 1000 Units. Medication's Wasted: Other = Fentanyl 50 mcg. Total IV fluids: 32 mL. Post-op diagnosis: TECHNOLOGY INTEGRATION SPECIALIST of the LAD. Complications: none. Estimated blood loss: 5mL-10mL. Responsiveness - Normal response to verbal stimuli; alert and oriented, PERRLA. Airway - Unaffected, no intervention required; spontaneous ventilation. Circulation: W/N/L, pulses unchanged. Nausea/Vomiting: No. Procedure completed. Patient transferred by wheelchair to CPRU. Vital chart was stopped. Access Site Site: Right Radial artery Sheath Size: 6 Fr Hemostasis Method: TR Band Hemostasis Success: Successful Procedure Medications Start: 7:54 AM Stop: 7:54 AM Medication: Versed Amount: 1 mg Route: I.V. Start: 7:54 AM Stop: 7:54 AM Medication: Fentanyl Amount: 50 mcg Route: I.V. Start: 7:57 AM Stop: 7:57 AM Medication: Versed Amount: 1 mg Route: I.V. Start: 7:58 AM Stop: 7:58 AM Medication: Nitrogylcerin Amount: 200 mcg Route: I.A. Start: 7:59 AM Stop: 7:59 AM Medication: Heparin Amount: 5000 units Route: I.V. I, the attending physician, have reviewed and verified all procedure medications. Yes, all medications given per verbal order History/Risk Factors Hypertension: Yes Dyslipidemia: No Peripheral Arterial Disease (PAD): No Myocardial Infarction (VT): Yes Obesity: Yes Renal Disease: No Tobacco Use: Never Prior Interventions PCI: Yes CABG: No Valve Surgery: No Date of PCI: 03/17/2020 Report Signatures Finalized by Gilberto Maurer MD on 01/02/2023 08:27 AM
--- NOTE | 2022-12-25 07:50 | W.PM.OPSFHP ---
Same Day Surgery H&P Indication for Procedure/HPI DATE OF PROCEDURE: December 25, 2022 CHIEF COMPLAINT/INDICATIONFOR SURGICAL PROCEDURE: Chest pain/ abnormal stress test PREOP DIAGNOSIS: Chest pain/ abnormal stress test PLANNED PROCEDURE: Operation Date: 12/25/22 07:00 Proposed Procedures p [facility] w/-w/o 62492,R07.9,R94.39(Left) - Gilberto Maurer M.D Possible percutaneous coronary intervention 72-year-old man with past medical history of CAD has been having chest pain episodes. Initially plan was for medical management however pain episodes were worsening. He underwent stress test that was abnormal . Plan for coronary angiogram with possible percutaneous coronary intervention. Medications/Allergies* Home Medications Medication Instructions Recorded Confirmed Type canagliflozin 100 mg tablet 50 mg PO QAM 06/18/19 12/22/22 History (Invokana) escitalopram oxalate 20 mg tablet 10 mg PO DAILY 06/18/19 12/22/22 History fenofibrate nanocrystallized 145 145 mg PO DAILY 06/18/19 12/22/22 History mg tablet lisinopril 20 1 tab PO DAILY 06/18/19 12/22/22 History mg-hydrochlorothiazide 12.5 mg tablet metformin 500 mg tablet 500 mg PO BID 06/18/19 12/22/22 History metoprolol tartrate 50 mg tablet 25 mg PO BID 06/18/19 12/22/22 History nitroglycerin 0.4 mg sublingual 0.4 mg sublingual Q5M PRN Chest 06/18/19 12/22/22 History tablet (Nitrostat) Pain Allergies/Adverse Reactions Allergy/AdvReac Type Severity Reaction Status Date / Time No Known Allergies Allergy Verified 12/22/22 07:05 Current Medications: Generic Name Dose Route Start Last Admin Trade Name Freq PRN Reason Stop Dose Admin Sodium Chloride 1,000 mls @ 50 mls/hr 12/25/22 06:00 12/25/22 06:53 Sodium Chloride 0.9% IV 12/26/22 01:59 Not Given .Q20H ONE Pertinent History/Comorbid Conditions* Medical History (Updated 04/09/22 @ 20:09 by Kaleigh Lam DO) ASHD (arteriosclerotic heart disease) Diabetes Essential hypertension History of nonmelanoma skin cancer Myocardial infarction Surgical History (Updated 12/05/20 @ 15:35 by Gilberto Maurer M.D) S/P angioplasty with stent S/P hemorrhoidectomy S/P hernia repair S/P hip replacement S/P vein stripping Family History (Updated 06/18/19 @ 11:35 by Lashay Qiu RN) CAD (coronary artery disease) Father Mother Brain aneurysm Father Myocardial infarction Father Social History Smoking and tobacco status: never smoked Alcohol intake: never Substance/Drug Use: never Pertinent Exam Findings alert, oriented x 3, clear to auscultation bilaterally and regular rate & rhythm Conscious Sedation Assessment PATIENT ASSESSED PRIOR TO SEDATION, WITH NO CHANGE NOTED: Yes AIRWAY EVAL/ANESTHESIA PLAN: normal airway, ASA III, Local Anesthesia, Risks, benefits & alternatives of sedation and/or procedure discussed and Patient agrees to continue as planned ADDITIONAL INFORMATION: Moderate sedation Recommendations Surgery/Procedure today (Left heart cath with possible percutaneous coronary intervention) Coding Level of Care Code Acute Code for Chg Fwd Diagnoses
[2022-12-25 08:24] VITALS: PULSE 59; RESP 19; O2SAT 94
[2022-12-25 08:30] VITALS: BP 111/64; PULSE 52; PULSE 59; RESP 18; O2SAT 94; O2SAT 95
[2022-12-25 08:45] VITALS: BP 102/67; PULSE 53; RESP 16; O2SAT 95
[2022-12-25 09:00] VITALS: BP 120/65; PULSE 53; RESP 17; O2SAT 95
--- NOTE | 2022-12-25 12:06 | PC.NURSE ---
Around 0800: TR band in place to patient's right wrist, site clean, dry, et intact. No drainage or hematoma noted. Vitals stable. No c/o pain or discomfort. Will Continue to monitor. Around 1100: TR band off. Puncture site to patient's right wrist clean, dry, et intact. No drainage or hematoma noted. Cleaned around site with soap and water, covered puncture site with band-aid. Vitals stable. No c/o pain or discomfort. Will continue to monitor. Around 1200: Discharge orders received. Dsg over puncture site to patient's right wrist clean, dry, et intact. No drainage or hematoma noted. Vitals stable. No c/o pain or discomfort. IV removed from patient right AC. Education patient over post cardiac catheterization activity restrictions and reportable s/s of infection. Patient discharged from CPRU to home via wheelchair in private vehicle with spouse. All belongings sent with patient.
== END 2022-12-25 12:00 | disposition home or self-care (01) ==
PROVIDERS: PCP Electrodiagnostic Medicine; Visit Provider Internal Medicine
DX: R94.39 Abnormal result of other cardiovascular function study (principal); R07.9 Chest pain, unspecified; I25.10 Atherosclerotic heart disease of native coronary artery without angina pectoris; E11.9 Type 2 diabetes mellitus without complications; Z79.84 Long term (current) use of oral hypoglycemic drugs; I25.82 Chronic total occlusion of coronary artery; T82.855A Stenosis of coronary artery stent, initial encounter; Y71.2 Prosthetic and other implants, materials and accessory cardiovascular devices associated with adverse incidents; I10 Essential (primary) hypertension
CPT/HCPCS: 36415; 36416; 80048; 82962; 85025; 93458; 96361; 96365; 99152; 99153; C1769; C1887; C1894; J1644; J2250; J3010; J3490; J7030; Q0163; Q9967

== ENCOUNTER → 2023-01-01 09:30 | Outpatient (BNVA) | payer MEDICARE, SELFPAY | PROVIDERS: PCP Electrodiagnostic Medicine; Visit Provider Nurse Practitioner Family | DX: I25.119 Atherosclerotic heart disease of native coronary artery with unspecified angina pectoris (principal); I10 Essential (primary) hypertension; I25.2 Old myocardial infarction | CPT/HCPCS: 36415; 80048; 99214 ==

== ENCOUNTER → 2023-01-25 14:53 | Outpatient (BNVA) | payer MEDICARE, SELFPAY | PROVIDERS: PCP Electrodiagnostic Medicine; Visit Provider Nurse Practitioner Family | DX: R07.9 Chest pain, unspecified (principal) | CPT/HCPCS: 71046; 99214 ==

== ENCOUNTER → 2023-02-23 11:23 | Outpatient (BNVA) | payer MEDICARE, SELFPAY | PROVIDERS: PCP Electrodiagnostic Medicine; Visit Provider Internal Medicine | DX: I25.118 Atherosclerotic heart disease of native coronary artery with other forms of angina pectoris (principal); E11.9 Type 2 diabetes mellitus without complications; I10 Essential (primary) hypertension; Z79.84 Long term (current) use of oral hypoglycemic drugs | CPT/HCPCS: 99214 ==

== ENCOUNTER → 2023-04-24 09:43 | Outpatient (BNVA) | payer MEDICARE, SELFPAY | PROVIDERS: PCP Electrodiagnostic Medicine; Visit Provider Nurse Practitioner Family | DX: L82.1 Other seborrheic keratosis (principal); D18.01 Hemangioma of skin and subcutaneous tissue; L57.0 Actinic keratosis; L85.3 Xerosis cutis; Z85.828 Personal history of other malignant neoplasm of skin; L57.8 Other skin changes due to chronic exposure to nonionizing radiation; L81.4 Other melanin hyperpigmentation | CPT/HCPCS: 17000; 99213 ==

== ENCOUNTER → 2023-08-23 14:44 | Outpatient (BNVA) | payer MEDICARE, SELFPAY | PROVIDERS: PCP Electrodiagnostic Medicine; Visit Provider Internal Medicine | DX: E11.9 Type 2 diabetes mellitus without complications (principal); I25.119 Atherosclerotic heart disease of native coronary artery with unspecified angina pectoris; I10 Essential (primary) hypertension; Z79.84 Long term (current) use of oral hypoglycemic drugs | CPT/HCPCS: 99214 ==

== ENCOUNTER → 2023-10-23 07:59 | Outpatient (BNVA) | payer MEDICARE, SELFPAY | PROVIDERS: PCP Electrodiagnostic Medicine; Visit Provider Nurse Practitioner Family | DX: D48.5 Neoplasm of uncertain behavior of skin (principal); Z85.828 Personal history of other malignant neoplasm of skin; L57.0 Actinic keratosis; L82.1 Other seborrheic keratosis; D18.01 Hemangioma of skin and subcutaneous tissue; L85.3 Xerosis cutis; L57.8 Other skin changes due to chronic exposure to nonionizing radiation; L81.4 Other melanin hyperpigmentation | CPT/HCPCS: 11102; 17000; 99213 ==

== ENCOUNTER → 2024-04-28 08:12 | Outpatient (BNVA) | payer MEDICARE, SELFPAY | PROVIDERS: PCP Electrodiagnostic Medicine; Visit Provider Nurse Practitioner Family | DX: L82.1 Other seborrheic keratosis (principal); D18.01 Hemangioma of skin and subcutaneous tissue; L85.3 Xerosis cutis; L57.8 Other skin changes due to chronic exposure to nonionizing radiation; L81.4 Other melanin hyperpigmentation; Z85.828 Personal history of other malignant neoplasm of skin; L57.0 Actinic keratosis | CPT/HCPCS: 17000; 99213 ==

== ENCOUNTER → 2024-05-22 15:04 | Outpatient (BNVA) | payer MEDICARE, SELFPAY | PROVIDERS: PCP Electrodiagnostic Medicine; Visit Provider Internal Medicine | DX: I25.10 Atherosclerotic heart disease of native coronary artery without angina pectoris (principal); E11.9 Type 2 diabetes mellitus without complications; I10 Essential (primary) hypertension; Z79.84 Long term (current) use of oral hypoglycemic drugs | CPT/HCPCS: 99213 ==

== ENCOUNTER → 2024-12-11 10:04 | Outpatient (BNVA) | payer MEDICARE, SELFPAY | PROVIDERS: PCP Electrodiagnostic Medicine; Visit Provider Nurse Practitioner Family | DX: I25.10 Atherosclerotic heart disease of native coronary artery without angina pectoris (principal); I10 Essential (primary) hypertension; E11.9 Type 2 diabetes mellitus without complications; Z79.84 Long term (current) use of oral hypoglycemic drugs; Z79.02 Long term (current) use of antithrombotics/antiplatelets; Z79.82 Long term (current) use of aspirin; Z95.5 Presence of coronary angioplasty implant and graft; I25.2 Old myocardial infarction | CPT/HCPCS: 99213 ==

== ENCOUNTER → 2025-05-25 13:53 | Outpatient (BNVA) | payer MEDICARE, SELFPAY | PROVIDERS: PCP Electrodiagnostic Medicine; Visit Provider Nurse Practitioner Family | DX: L57.0 Actinic keratosis (principal); Z85.828 Personal history of other malignant neoplasm of skin; L82.0 Inflamed seborrheic keratosis; D18.01 Hemangioma of skin and subcutaneous tissue | CPT/HCPCS: 17000; 17110; 99213 ==